=== PATIENT | female | born 1980 | race American Indian/Alaskan Native ===

== ENCOUNTER 2021-01-15 00:19 | Emergency (ER) | payer OTHER ==
[2021-01-15 00:23] VITALS: BP 175/121
--- NOTE | 2021-01-15 03:04 | Emergency Department Report ---
ED General Adult HPI - General Chief complaint: High BP Stated complaint: HYPERTENTION X 7 DAYS Time Seen by Provider: 01/15/21 02:48 Source: patient Mode of arrival: Ambulatory Limitations: No Limitations - History of Present Illness Initial comments: Chief complaint my blood pressure was high, I do not want another stroke HPI: This is a 40-year-old female with history of SLE, depression, hypertension, CVA with residual expressive aphasia who presents with elevated blood pressure. Yesterday she was discharged from [facility]. [facility] She plans to return to [facility] when she receives transportation. She normally takes losartan. She has been without this medication for a week. She had mild frontal headache. No other symptoms. Hydralazine recently discontinued. -: week(s) (Has not taken blood pressure medication over a week.) Location: head (Mild frontal throbbing headache.) Severity scale (0 -10): 0 Consistency: now resolved Improves with: none Worsens with: none Associated Symptoms: denies other symptoms - Related Data Previous Rx's Medication Instructions Recorded Last Taken Type Losartan [Cozaar] 50 mg PO QDAY 90 Days #90 tablet 01/15/21 Unknown Rx Allergies Allergy/AdvReac Type Severity Reaction Status Date / Time Sulfa (Sulfonamide AdvReac Hives Verified 01/15/21 00:23 Antibiotics) ED Review of Systems ROS: Stated complaint: HYPERTENTION X 7 DAYS Other details as noted in HPI Comment: All other systems reviewed and negative Constitutional: denies: chills, fever, malaise Respiratory: denies: cough, shortness of breath Cardiovascular: denies: chest pain Gastrointestinal: denies: abdominal pain, nausea, vomiting Neurological: headache ED Past Medical Hx - Past Medical History Previous Medical History?: Yes Hx Hypertension: Yes Hx Psychiatric Treatment: Yes (Depression) Additional medical history: Lupus - Surgical History Past Surgical History?: No - Social History Smoking Status: Never Smoker Substance Use Type: None - Medications Home Medications: Home Medications Medication Instructions Recorded Confirmed Last Taken Type Losartan [Cozaar] 50 mg PO QDAY 90 Days #90 tablet 01/15/21 Unknown Rx ED Physical Exam - General Limitations: No Limitations General appearance: alert, in no apparent distress, other (Well-appearing no acute distress) - Head Head exam: Present: atraumatic, normocephalic - Eye Eye exam: Present: normal appearance - ENT ENT exam: Present: mucous membranes moist - Neck Neck exam: Present: normal inspection - Respiratory Respiratory exam: Present: normal lung sounds bilaterally. Absent: respiratory distress - Cardiovascular Cardiovascular Exam: Present: regular rate, normal rhythm. Absent: systolic murmur, diastolic murmur, rubs, gallop - GI/Abdominal GI/Abdominal exam: Present: soft, normal bowel sounds. Absent: distended, tenderness, guarding, rebound - Extremities Exam Extremities exam: Present: normal inspection - Back Exam Back exam: Present: normal inspection - Neurological Exam Neurological exam: Present: alert, oriented X3, normal gait - Psychiatric Psychiatric exam: Present: normal affect, normal mood - Skin Skin exam: Present: warm, dry, intact, normal color. Absent: rash ED Course Vital Signs 01/15/21 00:22 Temperature 98.1 F Pulse Rate 92 H Respiratory 18 Rate Blood Pressure 175/121 [Left] O2 Sat by Pulse 99 Oximetry ED Medical Decision Making - Medical Decision Making Asymptomatic hypertensive urgency: Patient given dose of home blood pressure medication. Also provided 90-day prescription of losartan. Critical care attestation.: If time is entered above; I have spent that time in minutes in the direct care o f this critically ill patient, excluding procedure time. ED Disposition Clinical Impression: Hypertensive urgency Disposition: HOME / SELF CARE / HOMELESS Is pt being admited?: No Does the pt Need Aspirin: No Condition: Stable Instructions: Managing Your Hypertension Prescriptions: Losartan [Cozaar] 50 mg PO QDAY 90 Days #90 tablet Referrals: NANCY BAKER MD [Staff Physician] - as needed
[2021-01-15] MEDS ORDERED: LOSARTAN 50 MG TAB PO ONE (03:05)
== END 2021-01-15 03:56 | disposition home or self-care (01) ==
LOC: ED 00:19
DX: I16.0 Hypertensive urgency (principal); Z88.2 Allergy status to sulfonamides
CPT/HCPCS: 99281